=== PATIENT | female | born 1980 | race Caucasian/White ===

== ENCOUNTER 2022-12-19 22:49 | Emergency (ER) | payer OTHER ==
[~2022-12-19] VITALS: Ht 165.1 cm; Wt 67.1 kg
[2022-12-19 23:10] LABS: *BLOOD, URINE 3+ (NEGATIVE); *COLOR,URINE YELLOW (YELLOW); *KETONES,URINE 4+ (NEGATIVE); *UROBILINOGEN,URINE 0.2 E.U./dl (NORMAL); LEUKOCYTE ESTERASE ,URINE NEGATIVE (NEGATIVE); NITRITE, URINE NEGATIVE (NEGATIVE); UGLUCOSE NEGATIVE (NEGATIVE)
[2022-12-19] MEDS ORDERED: ONDANSETRON 4 MG/2 ML VIAL ONE (23:12)
[2022-12-19] MEDS ORDERED: KETOROLAC TROMETHAMINE 30 MG INJ ONE (23:12)
[2022-12-19] MEDS ORDERED: HYDROMORPHONE 1 MG/1 ML DISP.SYRIN ONE (23:12)
[2022-12-19] MEDS ORDERED: HYDROMORPHONE 1 MG/1 ML DISP.SYRIN IV ONE (23:15)
[2022-12-19] MEDS ORDERED: ONDANSETRON 4 MG/2 ML VIAL IV ONE (23:15)
[2022-12-19] MEDS ORDERED: KETOROLAC TROMETHAMINE 30 MG INJ IVP ONE (23:15)
[2022-12-19 23:16] LABS: *BILIRUBIN,URIN 1+ (NEGATIVE)
[2022-12-19 23:17] LABS: *CLARITY,URINE SLIGHTLY CLOUDY (CLEAR)
[2022-12-19 23:19] LABS: BACTERIA,URINE MODERATE /HPF (NONE SEEN); RBC,URINE TNTC /HPF (0-3)
[2022-12-19 23:20] LABS: *URINE HCG, QUAL NEGATIVE (NEGATIVE); SQUAMOUS EPITHELIAL CELL,UR FEW /HPF (NONE SEEN)
[2022-12-19] MEDS ORDERED: HYDR-4209 PO (23:36)
[2022-12-19] MEDS ORDERED: ONDA4TAB5 PO (23:36)
== END 2022-12-19 23:45 | disposition home or self-care (01) ==
LOC: ER 23:02
DX: N20.0 Calculus of kidney (principal); R31.29 Other microscopic hematuria
CPT/HCPCS: 99284; 96374; 96375; 81001; 84703; 87040; J1885; J2405; J1170; A4663